=== PATIENT | female | born 1990 | race Caucasian/White ===

== ENCOUNTER 2019-05-08 21:05 | Emergency (ER) | payer MEDICAID ==
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
--- NOTE | 2019-05-09 09:49 | Diagnostic Imaging Report ---
CHEST X-RAY: AP view INDICATION: Shortness of breath COMPARISON: None FINDINGS: There is no focal consolidation or pleural effusions The heart is normal in size. The osseous structures demonstrate no acute abnormalities. IMPRESSION: No focal airspace consolidation identified. No evidence of pneumothorax.
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
--- NOTE | 2019-05-09 10:06 | Diagnostic Imaging Report ---
CT lumbar spine without IV contrast HISTORY: Back pain COMPARISON: CT abdomen and pelvis same day Technique: Reconstructions from CT abdomen and pelvis was performed in multiple planes. Total DLP 898, CTD I 36.5 Findings: Images of the lumbar spine obtained without contrast demonstrate no evidence of an acute fracture or subluxation. Minimal generalized degenerative changes are noted. The disc space heights are preserved. Degenerative changes of the SI joints are noted. IMPRESSION: No evidence of acute fracture or subluxation. Minimal degenerative changes.
--- NOTE | 2019-05-09 10:10 | Diagnostic Imaging Report ---
CT abdomen and pelvis without intravenous contrast Indication: Abdominal pain Comparison: None, Technique: Axial images were obtained from the lung bases to the bilateral proximal femurs without IV contrast. Coronal reconstructions were made. total DLP: 478, CTDI9.7 FINDINGS: Hypoventilatory changes of the lung bases are noted. Assessment of solid organs is limited due to lack of IV contrast. No evidence of focal hepatic, or splenic lesions. No focal pancreatic or adrenal lesions. No hydronephrosis or focal renal lesions. Distended stomach is noted containing food contents. Small fat-containing umbilical hernia is noted. Moderate stool is seen greatest in the cecum. No appendicitis. Nonspecific nondilated fluid-filled loops of small bowel are noted. No free fluid or free air. The osseous structures demonstrate no acute abnormalities IMPRESSION: Limited exam due to lack of IV contrast. No evidence of gross solid organ injury. No evidence of free fluid. No evidence of free abdominal air. Distended stomach containing food contents. Small fat-containing umbilical hernia.
== END 2019-05-09 00:08 | disposition home or self-care (01) ==
LOC: ER 21:05
DX: S33.5XXA Sprain of ligaments of lumbar spine, initial encounter (principal); S33.9XXA Sprain of unspecified parts of lumbar spine and pelvis, initial encounter; S93.602A Unspecified sprain of left foot, initial encounter; M54.40 Lumbago with sciatica, unspecified side; Z88.5 Allergy status to narcotic agent; V47.5XXA Car driver injured in collision with fixed or stationary object in traffic accident, initial encounter; Y93.89 Activity, other specified; Y92.410 Unspecified street and highway as the place of occurrence of the external cause; Y99.8 Other external cause status
CPT/HCPCS: 99284; 96372; 71045; 72170; 73501; 73620; 73552; 72131; 74176; J1885